=== PATIENT | female | born 2000 | race Two or more races ===

== ENCOUNTER 2020-01-05 10:23 | Emergency (ER) | payer OTHER ==
[~2020-01-05] VITALS: Ht 167.6 cm; Wt 130.2 kg
--- NOTE | 2020-01-05 10:23 | NUR ---
LUZMARIA RA 89 FROM HOME, REFUSING TO TALK AND GO OUT OF HER ROOM X 2 DAYS,C/O BEING DEPRESSED PER FAMILY, TO ER BED 12, HOOKED TO MONITOR, REFUSED TO BE CHANGED TO HOSP GOWN, AWAITING MD LOJA
--- NOTE | 2020-01-05 10:56 | NUR ---
DR MORSE AT BEDSIDE
--- NOTE | 2020-01-05 11:06 | NUR ---
Assumed care of pt.
--- NOTE | 2020-01-05 11:19 | NUR ---
PT IS EATING CANDY, NOT SPEAKING TO STAFF WHEN SHE IS ASKED QUESTIONS. PT MOVED HER LEGS LIKE SHE WAS GOING TO STAND UP, BUT DID NOT GET UP FROM THE BED. PT WAS ASKED FOR A URINE SAMPLE. WILL ASK AGAIN LATER.
[2020-01-05 11:23] LABS: BASOPHILS # (AUTO) 0.1 /CMM (0.0-0.2); BASOPHILS % (AUTO) 0.9 % (0.0-2.0); EOSINOPHILS % (AUTO) 0.1 % (0.0-6.0); HEMATOCRIT 41 % (33-45); HEMOGLOBIN 13.8 g/dL (11.5-14.8); LYMPHOCYTES # (AUTO) 2.9 /CMM (0.8-4.8); LYMPHOCYTES % (AUTO) 31.6 % (20.0-44.0); MEAN CORPUSCULAR HGB CONC 34 g/dl (31.0-36.0); MEAN CORPUSCULAR VOLUME 89 fL (82-100); MONOCYTES # (AUTO) 0.7 /CMM (0.1-1.30); MONOCYTES % (AUTO) 7.3 % (2.0-12.0); NEUTROPHILS # (AUTO) 5.6 /CMM (1.8-8.9); NEUTROPHILS % (AUTO) 60.1 % (43.0-81.0); PLATELET COUNT (AUTO) 428 /CMM (150-450); RED BLOOD CELL COUNT(AUTO) 4.61 MIL/uL (4.0-5.2); WHITE BLOOD COUNT (AUTO) 9.3 K/uL (4.3-11.0)
[2020-01-05 11:33] LABS: CARBON DIOXIDE 22 mmol/L (21-32); CHLORIDE 104 mmol/L (98-107); CREATININE 0.9 mg/dL (0.6-1.3); GLUCOSE 101 mg/dL (74-106); POTASSIUM 3.1 mmol/L (3.5-5.1); SODIUM SERUM 141 mmol/L (136-145); UREA NITROGEN, BLOOD 17 mg/dL (7-18)
--- NOTE | 2020-01-05 11:34 | NUR ---
PT SAT UP IN THE BED AND MOVED HER LEGS TO THE SIDE OF BED (SLIGHTLY) AND THEN LAID BACK DOWN IN BED. MD IS AWARE AND IS OK WITH PT NOT GIVING A URINE SAMPLE. IN AND OUT CATH NOT ORDERED. I WILL KEEP TRYING TO ASSIST WITH OBTAINING A URINE SAMPLE.
[2020-01-05 11:53] LABS: ALANINE AMINOTRANSFERASE 76 U/L (12-78); ALBUMIN 4.4 g/dL (3.4-5.0); ALCOHOL, BLOOD < 3 mg/dL (0-0); ALKALINE PHOSPHATASE 77 U/L (46-116); ASPARTATE AMINOTRANSFERASE 42 U/L (15-37); BILIRUBIN,DIRECT 0.2 mg/dL (0.0-0.2); BILIRUBIN,TOTAL 0.8 mg/dL (0.2-1.0); TOTAL PROTEIN, SERUM 8.7 g/dL (6.4-8.2)
[2020-01-05 11:58] LABS: SALICYLATE 0.8 mg/dL (2.8-20.0)
[2020-01-05 11:59] LABS: ACETAMINOPHEN 0 ug/ml (10-30)
--- NOTE | 2020-01-05 12:09 | NUR ---
PT AMBULATED TO THE BATHROOM WITH ASSISTANCE. PT DOES NOT WANT TO GO. PT RETURNED TO ER 12
--- NOTE | 2020-01-05 12:33 | NUR ---
PT IS ASKING FOR HER MOTHER. PT STATED: " I WANT A BLOOD TRANSFUSION FROM MY MOM".
--- NOTE | 2020-01-05 13:19 | NUR ---
PT IS GETTING UP AND WALKING WITH A STEADY GAIT. PT IS REQUESTING FOOD. MEAL TRAY ORDERED FROM [employer].
--- NOTE | 2020-01-05 13:30 | NUR ---
FOOD TRAY WAS DELIVERED.
--- NOTE | 2020-01-05 14:26 | NUR ---
PT'S FAMILY CALLED RE: PT. FAMILY WANTED PT TO GO TO [facility]. CALLED 911 TO HAVE THEM HELP GET THE PT INTO THE CAR. THEY COULD NOT AND TOOK THE PT TO THE ER.
--- NOTE | 2020-01-05 14:28 | NUR ---
CALL PT'S SISTER, HUNTER, WITH UPDATE.
--- NOTE | 2020-01-05 14:29 | NUR ---
PER PT'S SISTER, HUNTER, PT HAD A PSYCHOTIC BREAK 5 TO 6 YEARS AGO AND REC'D ZYPREXA WHICH HELPED TO BREAK HER PSYCHOTIC EPISODE IN 2 DAYS.
--- NOTE | 2020-01-05 14:50 | NUR ---
CALLING BACKEND DEVELOPER ([id number]) RE: EVAL OF PT.
--- NOTE | 2020-01-05 15:19 | NUR ---
PT IS SITTING UP IN BED. PT IS STILL ONLY SPEAKING TO THE SITTER. PT JUST GIVES A BLANK STARE WHEN I ASK QUESTIONS. WILL CONTINUE TO MONITOR THE PT.
--- NOTE | 2020-01-05 15:40 | NUR ---
EDWIN MARQUEZ WORKER ARRIVED AND IS SPEAKING TO THE PT.
--- NOTE | 2020-01-05 15:53 | NUR ---
NAVEEN MARQUEZ, IS SPEAKING TO THE PT'S SISTER.
--- NOTE | 2020-01-05 16:10 | NUR ---
Social service consult requested by MD. Per MD notes, pt is a 19-year-old woman with history of psychiatric illness recently treated with Abilify has been using her medications but refusing to talk or come out of her room, she appeared to be more withdrawn and has had continued psychosis. SECURITY ADVISOR along with SARAH Smith met with the pt bedside. Pt is alert and oriented x 1. Pt is selective mute and answers some questions but is not coherent. Pt states, " I want to go downstairs in the elevator". SECURITY ADVISOR contacted pt's sister for additional information. SECURITY ADVISOR introduced self, explained role and purpose of the call. Per sister Saundra, pt resides with them. The family was taking the pt to [facility] center, however pt refused to get in the car. Paramedics were called to assist the pt to get in the car ,however EMS brought the pt to [facility] ED. Saundra stated, that was not the plan. Per Saundra, pt has been diagnosed with Generalized Anxiety Disorder and SchizoAffective Disorder. Pt is currently taking Abilify. Per family, they were taking pt to [facility] so pt could get Zyprexa 10 mg since it has helped the pt in the past. Saundra states, pt has been in her room for two days. Pt has a psychotic break 7 years ago and was delusional and did not communicate. Family is willing to orange picker machine operator the pt. SECURITY ADVISOR informed Dr. Michelle regarding family stating pt does well on Zyprexa [address] Michelle to give the pt the recommended dose. Once pt is more coherent, family will orange picker machine operator the pt from [facility] to follow up with [facility]. SECURITY ADVISOR provided sister with active listening, supportive counseling, and validation of feelings. GERALD Pelaez has been updated with aforementioned information.
[2020-01-05] MEDS ORDERED: OLANZAPINE 5 MG TABLET ONE (16:19)
[2020-01-05] MEDS ORDERED: OLANZAPINE 5 MG TABLET PO ONE (16:30)
--- NOTE | 2020-01-05 16:30 | NUR ---
PT REFUSED MEDICATION. NOTIFIED.
--- NOTE | 2020-01-05 16:45 | NUR ---
CALLING ALMA, RE: PT'S POC.
--- NOTE | 2020-01-05 16:46 | NUR ---
VOICE MESSAGE LEFT FOR NAVEEN MARQUEZ.
--- NOTE | 2020-01-05 16:48 | NUR ---
CALLING PT'S SISTER, HUNTER, RE: PICKING UP THE PT FROM THE ER. NO ANSWER.
--- NOTE | 2020-01-05 16:57 | NUR ---
CALLED PT'S SISTER AND SHE WILL COME TO CERAMICS MACHINE OPERATOR THE PT. PT IS SLOW TO SPEAK, BUT IS TALKING IN SHORT SENTENCES.
[2020-01-05 17:32] VITALS: BP 122/82
== END 2020-01-05 17:33 | disposition home or self-care (01) ==
LOC: ER 10:30
DX: F29 Unspecified psychosis not due to a substance or known physiological condition (principal); F32.9 Major depressive disorder, single episode, unspecified
CPT/HCPCS: 36415; 80048; 80076; 80307; 80329; 85025; 99284; G0480